=== PATIENT | female | born 1985 | race Caucasian/White ===

== ENCOUNTER 2017-05-26 16:11 | Emergency (ER) | payer BC ==
[~2017-05-26] VITALS: Ht 167.6 cm; Wt 90.7 kg
[2017-05-26 17:22] VITALS: BP 123/85
[2017-05-26] MEDS ORDERED: KETOROLAC TROMETH 60MG/2ML VIAL IM ONE (18:00)
== END 2017-05-26 18:23 | disposition home or self-care (01) ==
LOC: ER 16:14
DX: M54.42 Lumbago with sciatica, left side (principal)
CPT/HCPCS: 96372; 99283; J1885